=== PATIENT | male | born 1955 | race Caucasian/White ===

== ENCOUNTER 2020-11-07 04:51 | Emergency (ER) | payer BC, SELFPAY ==
--- NOTE | ~2020-11-07 | CT_ITS ---
EXAMINATION: CT abdomen pelvis wo con DATE: 11/07/2020 05:56 INDICATION: Right flank pain TECHNIQUE: Computed tomography (CT) of the abdomen and pelvis was performed without intravenous contr ast. The dose-length product was 1582.95 mGy-cm. Automated exposure control and iterative reconstruct ion technique were employed. COMPARISON: None. FINDINGS: Lung bases are unremarkable. Heart size normal. No significant pleural or pericardial effus ion. There is a punctate 1 mm right UVJ stone with mild right hydroureteronephrosis. Gallstones. Small low-density lesion right hepatic lobe measuring less than 1 cm, likely a cyst. The spleen, pancreas, adrenal glands and kidneys are unremarkable. Bowel gas pattern is nonobstructive. S mall fat-containing umbilical hernia. No free air or free fluid. No abnormal pelvic masses or fluid c ollections. Mild lumbar spondylosis. IMPRESSION: 1. Punctate 1 mm right UVJ stone with mild hydronephrosis. 2: Cholelithiasis. Reviewed, dictated and finalized at location A.
[2020-11-07 04:54] VITALS: BP 164/68; PULSE 67; RESP 16; TEMP 36.6; O2SAT 98
[2020-11-07 05:30] LABS: Basophils Percent Auto 0.4 % (0.2-1.2); Eosinophils Absolute Auto 0.3 K/mm3 (0-0.3); Eosinophils Percent Auto 3.6 % (0-4.4); Hematocrit 41.9 % (42.0-52.0); Hemoglobin 13.9 g/dL (14.0-18.0); Immature Granulocyte Absolute 0.05 K/mm3 (0.00-0.031); Immature Granulocyte Percent A 0.6 % (0-0.5); Lymphocytes Absolute Auto 2.65 K/mm3 (0.9-3.2); Lymphocytes Percent Auto 29.6 % (18.3-44.2); Mean Corpuscular HGB Conc 33.2 g/dl (32-36); Mean Corpuscular Hemoglobin 29.7 pg (26-34); Mean Corpuscular Volume 89.5 fl (80-100); Mean Platelet Volume 9.6 fl (7.4-10.4); Monocytes Percent Auto 11.4 % (2.6-8.5); Neutrophils Absolute Auto 4.9 K/mm3 (1.3-6.7); Neutrophils Percent Auto 54.4 % (45.5-73.1); Platelet Count Result 295 k/mm3 (150-375); Red Blood Count 4.68 M/mm3 (4.6-6.20); Red Cell Distribution Width 13.4 % (11.5-14.5)
--- NOTE | 2020-11-07 05:32 | ED.ABDPAIN ---
HPI - Abdominal Pain General Chief Complaint: Abdominal Pain Stated Complaint: kidney stones Time Seen by Provider: 11/07/20 05:08 History of Present Illness HPI narrative: Awoken from sleep early this morning by severe right flank pain. No radiation. Associated with nausea. Slightly improved with standing and walking. He has never had this pain before. Related Data Home Medications Medication Instructions Recorded Confirmed metoprolol succinate 50 mg 50 mg PO DAILY 03/07/19 tablet,extended release 24 hr lorazepam 11/07/20 Allergies Allergy/AdvReac Type Severity Reaction Status Date / Time No Known Allergies Allergy Unverified 11/07/20 04:56 Review of Systems Review of Systems: All systems reviewed & are unremarkable except as noted in HPI and below Constitutional: Constitutional: Denies chills and Denies fever(s) Cardiovascular: Cardiovascular: Denies chest pain Respiratory: Respiratory: Denies dyspnea Gastrointestinal: Gastrointestinal: Denies diarrhea, Reports nausea and Denies vomiting Genitourinary: Genitourinary: Denies hematuria and Denies dysuria Neurologic: Denies dizziness, Denies numbness and Denies weakness [facility] Past Medical History Medical History (Updated 11/07/20 @ 06:48 by Curt Yeager MD) HLD (hyperlipidemia) Hypertension Family History Family History Other Hypertension Social History Social History Smoking status: Never smoker Alcohol intake: never Gender identity (if verbalized by the patient): Male Sexual Orientation (if Verbalized by the Patient): Straight or Heterosexual Exam Const: General: healthy appearing and alert Orientation/consciousness: patient oriented x3 Other: mild distress, restless HENMT: Head: normal to inspection Neck: Neck: normal visual inspection Resp: Effort & Inspection: normal respiratory effort Auscultation: clear to auscultation bilaterally Cardio: Rate: regular rate Rhythm: regular rhythm GI: GI Palp: Yes Soft to palpation and No Tenderness to palpation present (GI) : General: Yes no CVA tenderness Skin: General skin exam: normal color Neuro: General: patient oriented x3, moves all extremities and CN's II-XI intact bilaterally Extrem: General: normal to inspection Psych: Affect: Anxious affect present Course Vital Signs Vital signs: Vital Signs Temperature 36.6 C 11/07/20 04:54 Pulse Rate 67 11/07/20 04:54 Respiratory Rate 16 11/07/20 04:54 Blood Pressure 164/68 H 11/07/20 04:54 Pulse Oximetry 98 11/07/20 04:54 Temperature 36.6 C 11/07/20 04:54 Pulse Rate 67 11/07/20 04:54 Respiratory Rate 16 11/07/20 04:54 Blood Pressure 164/68 H 11/07/20 04:54 Pulse Oximetry 98 11/07/20 04:54 MDM - Abdominal Pain MDM Narrative Medical decision making narrative: 1 mm right ureteral stone. Differential Diagnosis Differential diagnosis: Likely calculus of kidney and diverticulitis Medical Records Attestation: I reviewed the patient's medical records. Lab Data Attestation: I reviewed the patient's lab results. Result diagrams: 11/07/20 05:13 11/07/20 05:13 Labs: Lab Results 11/07/20 11/07/20 11/07/20 Range/Units 05:13 05:13 05:13 WBC 9.0 (4.5-10.0) K/mm3 RBC 4.68 (4.6-6.20) M/mm3 Hgb 13.9 L (14.0-18.0) g/dL Hct 41.9 L (42.0-52.0) % MCV 89.5 (80-100) fl MCH 29.7 (26-34) pg MCHC 33.2 (32-36) g/dl RDW 13.4 (11.5-14.5) % Plt Count 295 (150-375) k/mm3 MPV 9.6 (7.4-10.4) fl Immature Gran % (Auto) 0.6 H (0-0.5) % Neut % (Auto) 54.4 (45.5-73.1) % Lymph % (Auto) 29.6 (18.3-44.2) % [place] % (Auto) 11.4 H (2.6-8.5) % Eos % (Auto) 3.6 (0-4.4) % Baso % (Auto) 0.4 (0.2-1.2) % Lymph # (Auto) 2.65 (0.9-3.2) K/mm3 [place] # (Auto) 1.0 H (0.1-0.6) K
[2020-11-07 05:35] LABS: Add Urine Microscopic? YES; Appearance Urine Cloudy (Clear); Bilirubin Urine Negative (Negative); Blood Urine 3+ (Negative); Color Urine Yellow (Yellow); Glucose Urine UA Negative (Negative); Ketones Urine Negative (Negative); Leukocyte Esterase Ur Negative LEU/UL (Negative); Mucus Urine Rare /lpf; Nitrate Urine Negative (Negative); Protein Urine 1+ mg/dL (Negative); RBC Urine >75 /hpf (0-2); Specific Grav Ur 1.018 (1.001-1.035); Squamous Epithelial Cell Urine Rare /hpf (Few); Urobilinogen Urine Negative mg/dL (<2.0)
[2020-11-07] MEDS: fentaNYL CITRATE INJ (*CRX) 100 MCG/2 ML VIAL 50 MCG IV PUSH (05:36)
[2020-11-07] MEDS: SODIUM CHLORIDE 0.9% IV 1,000 ML 999 ML IV CONT (05:39)
[2020-11-07] MEDS: ONDANSETRON INJ 4 MG/2 ML VIAL IV PUSH (05:39)
[2020-11-07 05:41] LABS: Anion Gap 10 mmol/L (8-16); Blood Urea Nitrogen 21 mg/dL (9-20); Calcium 9.3 mg/dL (8.4-10.2); Carbon Dioxide 24 mmol/L (22-30); Chloride 104 mmol/L (98-107); Estimated CRCL calculation 80 ml/min; Estimated Glomerular Filt Rate > 60; Glucose 167 mg/dL (65-110); Sodium 138 mmol/L (137-145)
[2020-11-07] MEDS: KETOROLAC 30 MG/ML VIAL (*BKC) IV PUSH (06:58)
[2020-11-07] MEDS: HYDROcodone/acetaminophen (*CRX) 5-325 MG TABLET 1 TAB PO (06:59)
[2020-11-07] MEDS: TAMSULOSIN HCL 0.4 MG CAPSULE PO (07:01)
== END 2020-11-07 07:13 | disposition home or self-care (01) ==
PROVIDERS: Emergency Provider Emergency Medicine; PCP Emergency Medicine
DX: N13.2 Hydronephrosis with renal and ureteral calculous obstruction (principal); E78.5 Hyperlipidemia, unspecified; I10 Essential (primary) hypertension; K80.20 Calculus of gallbladder without cholecystitis without obstruction
CPT/HCPCS: 36415; 74176; 80048; 81001; 85025; 96361; 96374; 96375; 99284; A9270; J1885; J2405; J3010; J7030

== ENCOUNTER 2022-09-18 01:49 | Day surgery (SDC) | payer MEDICARE, OTHER, SELFPAY ==
[2022-09-14 08:44] VITALS: BMI 34.3
[2022-09-18 06:55] VITALS: BP 134/79; PULSE 67; RESP 20; TEMP 36.6; O2SAT 100; BMI 35.2
[2022-09-18] MEDS: LACTATED RINGERS 1,000 ML 150 ML IV CONT (06:57)
--- NOTE | 2022-09-18 07:43 | WPDANESEPPF ---
Anes - Initial Pre Proc Eval Procedure: Operation Date: 09/18/22 08:00 Proposed Procedures p Colonoscopy - Alex Montero MD Date/Time: 09/18/22 07:43 Surgeon: Alex Montero MD Pre Op Diagnosis: other fecal abnormalities Patient Data Age: 67 Gender: M Height: 1.85 m Weight: 121.3 kg Last Vital Signs Temp 36.6 C 09/18/22 06:55 Pulse 67 09/18/22 06:55 Resp 20 09/18/22 06:55 BP 134/79 09/18/22 06:55 Pulse Ox 100 09/18/22 06:55 O2 Del Method Room Air 09/18/22 06:55 Allergies Allergy/AdvReac Type Severity Reaction Status Date / Time No Known Allergies Allergy Verified 09/18/22 06:53 Home Medications Medication Instructions Recorded Confirmed Type amlodipine 10 mg tablet (Norvasc) 10 mg PO DAILY #90 tabs 02/16/22 09/14/22 Rx simvastatin 20 mg tablet See Rx Instructions .Route 02/16/22 09/14/22 Rx .COMPLEX #90 tabs lisinopril 20 See Rx Instructions .Route 04/28/22 09/14/22 Rx mg-hydrochlorothiazide 25 mg tablet .COMPLEX #90 tabs Patient hx anesthesia problems: none Family hx anesthesia problems: none Results Review: All pre-operative results and documents have been reviewed as part of the pre-operative evaluation. [facility] Past Medical History Medical History HLD (hyperlipidemia) Hypertension Family History Family History Other Hypertension Social History Social History Smoking status: Never smoker Alcohol intake: current Alcohol use details: rarely Substance use: never Substance use type: does not use Living arrangements: alone Gender identity (if verbalized by the patient): Male Sexual Orientation (if Verbalized by the Patient): Straight or Heterosexual Spiritual care concerns: No Anes - Eval Final PreProcedure Day of Procedure 09/18/22 07:43 Patient weight: obese Heart: regular rate and rhythm Lungs: clear to auscultation and normal air movement Airway: Mallampati scale class II Neurological: alert and oriented Last oral intake: >/= 8 hours ASA classification: III Emergent: no Anesthetic plan: proceed Anesthesia type and monitoring: general GIVS Results Review: All pre-operative results and documents have been reviewed as part of the pre-operative evaluation. Informed Consent: The patient's anesthetic plan and its attendant risks and benefits were discussed with the patient/family/POA. Questions were solicited and answers provided to the satisfaction of the patient/family/POA.
--- NOTE | 2022-09-18 07:57 | PM.HPGS ---
History of Present Illness History of Present Illness Consent: Risks, benefits, and alternatives have been discussed and questions answered. Patient agrees to proceed with procedure. Chief complaint: other fecal abnormalities Narrative: Heladio Hung is a 67 year old male here for first colonoscopy, had + cologuard Review of Systems Constitutional: Constitutional: Denies headache(s) and Denies weakness Eyes: Eyes: Denies blurry vision ENT: Reports Normal hearing present, Denies headache(s) and Denies neck pain Cardiovascular: Cardiovascular: Denies chest pain and Denies dyspnea Respiratory: Respiratory: Denies dyspnea Gastrointestinal: Gastrointestinal: Reports no additional gastrointestinal complaints Genitourinary: Genitourinary: Denies dysuria Musculoskeletal: Musculoskeletal: Denies neck pain Integumentary/Breasts: Skin/Breast: Denies dry skin Neurologic: Reports Normal hearing present, Denies headache(s) and Denies weakness Psychiatric: Psychiatric: Denies anxiety Endocrine: Endocrine: Denies change in body appearance Hematologic/Lymphatic: Hematologic/Lymphatic: Denies easy bleeding Allergic/Immunologic: Allergic/Immunologic: Denies urticaria PMFSH Past Medical History Medical History (Updated 09/18/22 @ 07:57 by Alex Montero MD) HLD (hyperlipidemia) Hypertension Positive colorectal cancer screening using Cologuard test Family History Family History Other Hypertension Social History Social History Smoking status: Never smoker Alcohol intake: current Alcohol use details: rarely Substance use: never Substance use type: does not use Living arrangements: alone Gender identity (if verbalized by the patient): Male Sexual Orientation (if Verbalized by the Patient): Straight or Heterosexual Spiritual care concerns: No Meds Home Medications and Allergies Home Medications Medication Instructions Recorded Confirmed Type amlodipine 10 mg tablet (Norvasc) 10 mg PO DAILY #90 tabs 02/16/22 09/14/22 Rx simvastatin 20 mg tablet See Rx Instructions .Route 02/16/22 09/14/22 Rx .COMPLEX #90 tabs lisinopril 20 See Rx Instructions .Route 04/28/22 09/14/22 Rx mg-hydrochlorothiazide 25 mg tablet .COMPLEX #90 tabs Allergies Allergy/AdvReac Type Severity Reaction Status Date / Time No Known Allergies Allergy Verified 09/18/22 06:53 Vital Signs Vital Signs - 24 hr 09/18/22 06:55 Temperature 97.9 F Pulse Rate 67 Respiratory Rate 20 Blood Pressure 134/79 Pulse Oximetry 100 Oxygen Delivery Room Air Exam Const: General: comfortable and no acute distress HENMT: Face/Nose/Sinus: Normal nares present Eyes: General: appearance normal, both eyes and all related structures Neck: Neck: no JVD Resp: Auscultation: clear to auscultation bilaterally Cardio: Rate: regular rate Rhythm: regular rhythm GI: Inspection: non-distended GI Palp: Yes Soft to palpation Skin: General skin exam: normal color Neuro: General: gait normal Speech: normal speech Extrem: General: normal to inspection Psych: Mental Status: mental status grossly normal Assessment and Plan Assessment and plan (1) Positive colorectal cancer screening using Cologuard test: Code(s): R19.5 - Other fecal abnormalities Status: Acute Assessment and Plan: colonoscopy
[2022-09-18 08:15] VITALS: BP 109/71; PULSE 70; RESP 16; O2SAT 97
[2022-09-18 08:25] VITALS: BP 129/76; PULSE 62; RESP 18; O2SAT 100
[2022-09-18 08:35] VITALS: BP 133/75; PULSE 58; RESP 18; O2SAT 100
== END 2022-09-18 08:41 | disposition home or self-care (01) ==
PROVIDERS: PCP Emergency Medicine; Visit Provider Internal Medicine Gastroenterology
PROC: 0DJD8ZZ Inspection of Lower Intestinal Tract, Via Natural or Artificial Opening Endoscopic (ICD-10-PCS; CPT 45378; principal; 2022-09-18 08:00)
DX: R19.5 Other fecal abnormalities (principal); D12.5 Benign neoplasm of sigmoid colon; D12.3 Benign neoplasm of transverse colon; K64.8 Other hemorrhoids; I10 Essential (primary) hypertension; E78.5 Hyperlipidemia, unspecified; E66.9 Obesity, unspecified; Z68.35 Body mass index [BMI] 35.0-35.9, adult
CPT/HCPCS: 45385; 88305; J2704; J7120

== ENCOUNTER 2023-09-23 11:21 | Emergency (ER) | payer MEDICARE, OTHER, SELFPAY ==
--- NOTE | ~2023-09-23 | CT_ITS ---
Non-contrast CT scan of the Abdomen and Pelvis Clinical indication: Flank pain Technique: 2.5 mm axial scans were obtained through the abdomen and pelvis without intravenous or or al contrast. Dose reduction technique was used on this scan by utilizing automated exposure control a nd iterative reconstruction technique. The dose-length product (DLP) was 1023.78 mGy-cm. COMPARISON: 11/07/2020 Findings: Images through the lung bases reveal no abnormalities. There is a 4 mm stone in the proximal right ureter (axial image 113). Possible minimal right hydronep hrosis. Additional larger nonobstructing right renal stones are present, measuring up to 9 mm. No lef t renal or left ureteral stone. No left hydronephrosis. The liver, spleen, pancreas, and adrenals appear normal. Small calcified gallstones are present. Ther e is no aortic aneurysm. There is no evidence of bowel obstruction. Images through the pelvis were performed. There is no evidence of ascites or lymphadenopathy. Urinary bladder unremarkable. No pelvic mass seen. Impression: 4 mm proximal right ureteral stone with probable minimal right hydronephrosis. Additional larger nonobstructing right renal stones, as detailed above. Cholelithiasis. Reviewed, dictated and finalized at location . Impression: 4 mm proximal right ureteral stone with probable minimal right hydronephrosis. Additional larger nonobstructing right renal stones, as detailed above. Cholelithiasis.
[2023-09-23 11:21] VITALS: BP 132/86; PULSE 66; RESP 18; TEMP 36.6; O2SAT 100
[2023-09-23] MEDS: ONDANSETRON INJ 4 MG/2 ML VIAL (11:48)
[2023-09-23] MEDS: MORPHINE SULFATE (*CRX) 4 MG/ML INJ (11:49)
[2023-09-23 12:08] LABS: Basophils Percent Auto 0.3 % (0.2-1.2); Eosinophils Percent Auto 0.1 % (0-4.4); Hematocrit 40.6 % (42.0-52.0); Hemoglobin 13.9 g/dL (14.0-18.0); Immature Granulocyte Absolute 0.05 K/mm3 (0.00-0.031); Immature Granulocyte Percent A 0.4 % (0-0.5); Lymphocytes Absolute Auto 0.95 K/mm3 (0.9-3.2); Lymphocytes Percent Auto 7.4 % (18.3-44.2); Mean Corpuscular HGB Conc 34.2 g/dl (32-36); Mean Corpuscular Hemoglobin 30.6 pg (26-34); Mean Corpuscular Volume 89.4 fl (80-100); Mean Platelet Volume 9.3 fl (7.4-10.4); Monocytes Absolute Auto 0.7 K/mm3 (0.1-0.6); Monocytes Percent Auto 5.1 % (2.6-8.5); Neutrophils Absolute Auto 11.2 K/mm3 (1.3-6.7); Neutrophils Percent Auto 86.7 % (45.5-73.1); Platelet Count Result 282 k/mm3 (150-375); Red Blood Count 4.54 M/mm3 (4.6-6.20); Red Cell Distribution Width 12.7 % (11.5-14.5); White Blood Count 12.9 K/mm3 (4.5-10.0)
[2023-09-23 12:12] LABS: Appearance Urine Cloudy (Clear); Bacteria Urine None Seen /hpf; Bilirubin Urine Negative (Negative); Blood Urine 3+ (Negative); Color Urine Yellow (Yellow); Glucose Urine UA Negative (Negative); Ketones Urine Negative (Negative); Leukocyte Esterase Ur Trace LEU/UL (Negative); Nitrate Urine Negative (Negative); Non Pathogenic Casts 0-2; Protein Urine Trace mg/dL (Negative); RBC Urine 21-50 /hpf (0-2); Specific Grav Ur 1.017 (1.001-1.035); Squamous Epithelial Cell Urine None Seen /hpf (Few); Urobilinogen Urine 0.2 mg/dL (<2.0); WBC Urine 0-5 /hpf (0-3)
[2023-09-23 12:13] LABS: Add Urine Microscopic? YES
[2023-09-23 12:19] LABS: Alanine Aminotransferase 25 U/L (6-50); Albumin Level 4.5 g/dL (3.5-5.1); Alkaline Phosphatase 64 U/L (38-126); Anion Gap 10 mmol/L (4-12); Aspartate Amino Transferase 30 U/L (17-59); Bilirubin,Total 0.7 mg/dL (0.2-1.3); Blood Urea Nitrogen 20 mg/dL (9-20); Calcium 9.3 mg/dL (8.4-10.2); Carbon Dioxide 24 mmol/L (22-30); Chloride 105 mmol/L (98-107); Estimated CRCL calculation 76 ml/min; Estimated Glomerular Filt Rate > 60; Glucose 180 mg/dL (65-110); Potassium 3.7 mmol/L (3.4-5.0); Sodium 139 mmol/L (137-145)
[2023-09-23] MEDS: KETOROLAC 15 MG/ML VIAL (*BKC) IV PUSH (12:30)
--- NOTE | 2023-09-23 13:25 | ED.GENADULT ---
HPI - General Adult General Chief complaint: Urogenital-Male Stated complaint: kidney stone Time Seen by Provider: 09/23/23 11:40 Source: patient Mode of arrival: ambulatory Limitations: no limitations History of Present Illness HPI narrative: 68-year-old with a history of hypertension, hypercholesteremia, kidney stones here with a complaint of sudden onset of right-sided flank pain radiating into right lower abdomen which started few hours ago. Complains of mild nausea but no significant vomiting. He denies any fever or chills. Patient states that he had a similar pain few years ago and was diagnosed with kidney stones at bedtime and his pain resembles . Onset (ago): hour(s) (2) Location: back and abdomen Radiation: abdomen Severity: severe Quality: sharp Pain Consistency: constant Relieving factors: none Exacerbating factors: none Associated symptoms: nausea/vomiting Treatments prior to arrival: none Related Data Allergies Allergy/AdvReac Type Severity Reaction Status Date / Time No Known Allergies Allergy Verified 03/15/23 09:29 [facility] Past Medical History Medical History HLD (hyperlipidemia) Hypertension Positive colorectal cancer screening using Cologuard test Family History Family History Other Hypertension Social History Social History Smoking status: Never smoker Alcohol intake: current Alcohol use details: rarely Substance use: never Substance use type: does not use Current Housing: Decline to Answer Concerned About Future Housing: Decline to Answer Difficulty Paying Gas/Electric Bills: Decline to Answer Difficulty Paying for Meds: Decline to Answer Currently Unemployed: Decline to Answer Education: Decline to Answer Difficulty w/ Childcare or Family Care: Decline to Answer Living arrangements: alone Gender identity (if verbalized by the patient): Male Sexual Orientation (if Verbalized by the Patient): Straight or Heterosexual Spiritual care concerns: No Exam Narrative: GENERAL: Well-appearing, well-nourished, and in no acute distress. HEAD: Normocephalic, atraumatic. EYES: PERRLA and EOMI. ENT: Nares clear, no rhinorrhea or epistaxis. Mucous membranes moist. NECK: Supple. CHEST: Clear to auscultation. No respiratory distress. HEART: Regular rate and rhythm. No murmur heard. Normal peripheral pulses. ABDOMEN: Soft, nontender, nondistended, normal active bowel sounds. EXTREMITIES: Normal range of motion. No edema. SKIN: Warm, dry, no rash. NEURO: No focal deficits. Alert and oriented x3. PSYCH: Normal mood and affect. Course Course Emergency Course: Patient still continues to be pain after morphine I did inform him about his lab work, CT scan. Will give him a Toradol for pain control Patient feeling much better. He feels comfortable going home advised him to drink more fluids take pain medication as prescribed, follow-up with the urologist Vital Signs Vital signs: Vital Signs Temperature 36.6 C 09/23/23 11:21 Pulse Rate 66 09/23/23 11:21 Respiratory Rate 18 09/23/23 11:21 Blood Pressure 132/86 09/23/23 11:21 Pulse Oximetry 100 09/23/23 11:21 Oxygen Delivery Room Air 09/23/23 11:21 Temperature 36.6 C 09/23/23 11:21 Pulse Rate 66 09/23/23 11:21 Respiratory Rate 18 09/23/23 11:21 Blood Pressure 132/86 09/23/23 11:21 Pulse Oximetry 100 09/23/23 11:21 Oxygen Delivery Room Air 09/23/23 11:21 Medical Decision Making Differential Diagnosis Differential Diagnosis: UTI, pyelonephritis, kidney stone, appendicitis, radicular pain Vital Signs Vital Signs: Vital Signs Temperature 36.6 C 09/23/23 11:21 Pulse Rate 66 09/23/23 11:21 Respiratory Rate 18 09/23/23 11:21 Blood Pressure 132/86 09/23/23 11:21 Pulse Oximetry 100 09/23/23 1
[2023-09-23 13:37] VITALS: BP 132/80; PULSE 68; RESP 16; TEMP 36.6; O2SAT 100
== END 2023-09-23 13:39 | disposition home or self-care (01) ==
PROVIDERS: Emergency Provider Family Medicine; PCP Emergency Medicine
DX: N20.2 Calculus of kidney with calculus of ureter (principal); I10 Essential (primary) hypertension; E78.00 Pure hypercholesterolemia, unspecified; Z87.442 Personal history of urinary calculi; K80.20 Calculus of gallbladder without cholecystitis without obstruction; Z79.899 Other long term (current) drug therapy
CPT/HCPCS: 36415; 74176; 80053; 81001; 85025; 96361; 96374; 96375; 99284; J1885; J2270; J2405

== ENCOUNTER 2025-01-08 15:05 | Outpatient (CLI) | payer MEDICARE, OTHER, SELFPAY ==
--- NOTE | ~2025-01-08 | XR_ITS ---
XR abdomen/kub 1V 01/08/2025 15:26 INDICATION: Flank pain TECHNIQUE: KUB COMPARISON: None FINDINGS: Bowel gas pattern is normal. There is no evidence of free air, mass, organomegaly, ascites or obstruction. No abnormal calculi are seen. The bones appear intact. Calcifications in the pelvis are believed to be phleboliths. IMPRESSION: 1: No acute abdominal abnormality identified. Reviewed, dictated and finalized at location B.
--- OUTSIDE RECORDS SUMMARY | 2025-01-08 16:00 | XMS_ITS | Clinical Summary ---
Author Organization [facility] Virtual Care Address [facility] [place] [address] Phone Care Team Providers Care Tape Deck Installer Name Role Phone Chong King MD Primary Care Provide r Allergies No known active allergies Medications amLODIPine (NORVASC) 10 mg tabletIndicatio ns:hypertension Take 1 tablet (10 mg total) by mouth every morning 3 Active lisinopril-hydr oCHLOROthiazide (ZESTORETIC) 20-25 mg per tablet Take 1 tablet by mouth every morning 4 Active LORazepam (ATIVAN) 0.5 mg tablet Take 1 tablet (0.5 mg total) by mouth 3 (three) times a day as needed for anxiety 3 Active simvastatin (ZOCOR) 20 mg tabletIndicatio ns:hyperlipidem ia Take 1 tablet (20 mg total) by mouth every morning 3 Active ergocalciferol (VITAMIN D) 50,000 unit capsuleIndicati ons:Vitamin D deficiency Take 1 capsule (50,000 Units total) by mouth once a week TAKE 1 CAPSULE ONCE A WEEK FOR 12 WEEKS, THEN FOLLOW UP WITH YOUR PCP. 12 capsule 4 Active acetaminophen (TYLENOL) 500 mg tablet Take 2 tablets (1,000 mg total) by mouth every 8 (eight) hours 90 tablet 5 Active aspirin 81 mg enteric coated tablet Take 1 tablet (81 mg total) by mouth 2 (two) times a day 60 tablet 5 Active senna-docusate (PERICOLACE) 8.6-50 mg Take 2 tablets by mouth 2 (two) times a day May increase to 4 tablets twice daily if needed. HOLD medication for diarrhea. 80 tablet [address] (PROTONIX) 20 mg EC tablet Take 1 tablet (20 mg total) by mouth daily 30 tablet 5 Active meloxicam (MOBIC) 7.5 mg tablet Take 1 tablet (7.5 mg total) by mouth daily 30 tablet 5 Active oxyCODONE (ROXICODONE) 5 mg immediate release tabletIndicatio ns:Pain Take 1 tablet (5 mg total) by mouth every 4 (four) hours as needed for pain (breakthrough) 30 tablet 5 Active traMADoL (ULTRAM) 50 mg tablet Take 1 tablet (50 mg total) by mouth every 8 (eight) hours as needed for pain 42 tablet 5 Active Active Problems Problem Noted Date Diagnosed Date Primary osteoarthritis of right knee 03/01/2024 Immunizations Immunization Administration Dates Next Due Influenza, Quadrivalent, [place] l Culture-based MDCK, Preservative Free, Antibiotic Free, Intramuscular 01/09/2020 Tdap 01/19/2020 Surgical History Surgery Date Site/Laterality Comments CYSTOSCOPY 04/12/2023 - 04/11/2024 KIDNEY STONE SURGERY 04/12/2023 - 04/11/2024 Medical History Medical History Date Comments Kidney stones Hypertension Family History Medical History Relation Name Comments Anesthesia problems Neg Hx Malig Hyperthermia Neg Hx Pseudochol deficiency Neg Hx Social History Tobacco Use Types Packs/Day Years Used Date Smoking Tobacco: Former Cigarettes 0.5 5 1 989 - 1993 Passive Smoke Exposure: Past Tobacco Cessation:Counseling Given: Not Answered AUDIT-C Answer Date Recorded Q1: How often do you have a drink containing alc ohol? 2-3 times a week 03/23/2024 Q2: How many drinks containi ng alcohol do you have on a typical day when you are drinking? 3 or 4 03/23/2024 Q3: How often do you have si x or more drinks on one occasion? Monthly 03/23/2024 Personal Safety Answer Date Recorded Have you ever been in or are you currently in a harmful physical or emotional relationship or is someone making you feel afraid or unsafe? Denies 04/13/2024 Sex and Gender Information Value Date Recorded Sex Assigned at Not on file Legal Sex Male 8:30 AM CENA Gender Identity Not on file Sexual Orientation Not on file Obstetrics History Last Filed Vital Signs Vital Sign Reading Time Taken Comments Blood Pressure 161/76 06/26/2024 6:51 PM CDT Pulse 90 06/26/2024 6:51 PM CDT Temperature 38.5 C (101.3 F) 06/26/2024 6:58 PM CDT Respiratory Rate 20 06/26/2024 6:51 PM CDT Oxygen Saturation 96% 06/26/2024 6:51 PM CDT Inhaled Oxygen Concentration - - Weight 126.1 kg (278 lb) 06/26/2024 6:51 PM CDT Height 185.4 cm (6' 1) 06/26/2024 6:51 PM CDT Body Mass Index 36.68 06/26/2024 6:51 PM CDT Plan of Treatment Health Maintenance Due Date Last Done Comments Colon Cancer Screening-Colonoscopy 1955 Depression Screening 1955 Hepatitis C Screening 1955 Prostate Cancer Screening-PSA 1955 Hepatitis B Screening 02/09/1974 Pneumococcal vaccine 65+ (1 of 1 - PCV) 02/09/2006 Zoster Vaccine (1 of 2) 02/09/2006 Well Visit 65+ 02/09/2021 Covid-19 Vaccine (4 - season) 2024 01/14/2021, 07/05/2020, 06/14/2020 Influenza Vaccine (#1) 2024 01/09/2020 Fall Risk Assessment 04/14/2025 04/14/2024 DTaP/Tdap/Td Vaccine (2 - Td or Tdap) 01/18/203012/2019 Abdominal Aortic Aneurysm (A AA) Screen Completed 09/25/2023 Medical Devices Implanted Type Area Operational Assistant Device Identifier Shelf Expiration Date Model / Serial / Lot [employer] Insert Tibial Triathlon 6 H10mm Knee Bearing Condylar Stabilize Sterile 1320-S-652-E - [id number] Implanted:Qty: 1 on 04/13/2024 at [facility] Right: Knee [employer] 01/01/2029 [id number] -[id number] / / [id number] [employer] Triathlon Cruciate Retain Bead Knee Right 6 Component Femoral Pa [id number]-F-[id number] - [id number] Implanted:Qty: 1 on 04/13/2024 at [facility] Right: Knee [employer] 01/06/2029 [id number] / / [id number] [employer] Triathlon Knee 6 Baseplate Tibial Tritanium 5536-B-600 - [id number] Implanted:Qty: 1 on 04/13/2024 at [facility] Right: Knee [employer] 01/16/2029 [id number] / / [id number] Insurance MEDICARE [facility] [place] [address] PHYSICIANS [facility] [place] [employer] [place] Advance Directives For more information, please contact: [phone] * Full Code (Latest Code Status on File) Date Activated Date Inactivated Comments 04/13/2024 10:47 AM 04/14/2024 3:20 PM Care Teams Tape Deck Installer Relationship Specialty Start Date End Date Chong King MD [address] [place] [address] PCP - General Emergency Medicine 03/22/23
--- OUTSIDE RECORDS SUMMARY | 2025-01-08 16:00 | XMS_ITS | Clinical Summary ---
Author Organization [facility] Address [address] [place] [address] Care Team Providers Care Route Vending Machine Servicer Name Role Phone Chong King MD Primary Care Provider + [phone] Allergies No known active allergies Medications lisinopril (PRINIVIL) 2.5 MG tablet Take 1 tablet (2.5 mg total) by mouth daily. Active simvastatin (ZOCOR) 20 MG tablet Take 1 tablet (20 mg total) by mouth daily. 03/12/2023 Active tamsulosin (FLOMAX) 0.4 MG Cap Take 1 capsule (0.4 mg total) by mouth nightly at bedtime. 30 capsule 1 10/01/2023 Active hyoscyamine (LEVSIN/SL) 0.[address] 1 tablet (0.125 mg total) under the tongue every 4 (four) hours as needed for Cramping (bladder spasms or ureteral stent discomfort). 30 tablet 1 10/01/2023 Active oxyCODONE immediate release (ROXICODONE) 5 MG immediate release tabletIndicatio ns:Acute Pain < 3 Day Supply Take 1 tablet (5 mg total) by mouth every 6 (six) hours as needed. Indications: Acute Pain < 3 Day Supply 12 tablet 10/15/2023 Active Family History Medical History Relation Comments No Known Problems Father Cancer Mother breast ca Relation Status Comments Father Alive Mother Social History Tobacco Use Types Packs/Day Years Used Date Smoking Tobacco: Never Smokeless Tobacco: Never Tobacco Cessation:Counseling Given: Not Answered Alcohol Use Standard Drinks/Week Comments Yes 0 (1 standard drink = 0.6 oz pur e alcohol) social Sex and Gender Information Value Date Recorded Sex Assigned at Not on file Legal Sex Male 7:39 AM CDT Gender Identity Not on file Sexual Orientation Not on file Last Filed Vital Signs Vital Sign Reading Time Taken Comments Blood Pressure 154/74 10/15/2023 9:45 AM CDT Pulse 68 10/15/2023 9:45 AM CDT Temperature 36.4 C (97.5 F) 10/15/2023 9:45 AM CDT Respiratory Rate 18 10/15/2023 9:45 AM CDT Oxygen Saturation 98% 10/15/2023 9:45 AM CDT Inhaled Oxygen Concentration - - Weight 117.6 kg (259 lb 4.2 oz) 10/15/2023 5:52 AM CDT Height 182.9 cm (6') 10/15/2023 5:52 AM CDT Body Mass Index 35.16 10/15/2023 5:52 AM CDT Plan of Treatment Health Maintenance Due Date Last Done Comments Colorectal Cancer Screening Colonoscopy (10 Years) 1955 Hepatitis C 02/09/1974 Pneumococcal Vaccine: 50+ Years (1 of 1 - PCV) 02/09/2006 Zoster Vaccines (1 of 2) 02/09/2006 Annual Medicare Wellness Visit 02/09/2021 COVID-19 Vaccine (4 - 2024-2 6 season) 2024 01/14/2021, 07/05/2020, 06/14/2020 DTaP, Tdap and Td Vaccines ( 2 - Td or Tdap) 01/18/2030 01/19/2020 RSV Immunization or 60+ Years (1 - 1-dose 75+ series) 02/09/2031 Meningococcal B Vaccine Aged Out No l onger eligible based on patient's age to complete this topic Meningococcal Vaccine Aged Out No osmel syed eligible based on patient's age to complete this topic RSV Immunizations Under 20 Months Aged Out No longer eligible b ased on patient's age to complete this topic Medical Devices Implanted Type Area Trimmer Sawyer Device Identifier Shelf Expiration Date Model / Serial / Lot Stent Ureteral 6fr 26cm Pigtl Crv Taper Tip Bldr Mrk - [id number] Implanted:Qty : 1 on 10/15/2023 by Tam Phelps MD at [facility] Stent Right: Ureter [employer] [id number] 05/26/2026 [id number] / / [id number] Explanted Type Area Trimmer Sawyer Device Identifier Shelf Expiration Date Model / Serial / Lot Stent Ureteral 6fr 26cm Pigtl Crv Taper Tip Bldr Mrk - [id number] Implanted:Qty : 1 on 10/01/2023 by Tam Phelps MD at [facility] Explanted:Qty : 1 on 10/15/2023 by Tam Phelps MD at [facility] Stent Right: Ureter [employer] [id number] 04/21/2026 [id number] / / [id number] Insurance MEDICARE [employer] Care Teams Route Vending Machine Servicer Relationship Specialty Start Date End Date Chong King MD [address] [place] [address] PCP - General INTERNAL MEDICINE 09/30/23
--- OUTSIDE RECORDS SUMMARY | 2025-01-08 16:00 | XMS_ITS | Clinical Summary ---
Author Organization [facility] Address [address] [place] [address] Care Team Providers Care Checkout Supervisor Name Role Phone Chong King MD Primary Care Provider [phone] Source Comments [facility],non-owned Affiliates and Associated Physician Practices is amultiple site organization consisting of ambulatory clinics and hospital sitesin [place], [place], [place] and [place]. This disclosure is being madepursuant to the Care Everywhere program and may not contain all information available regarding this patient. Last updated 17.[employer] [facility] Allergies No known active allergies Medications * Be aware that medications may not be up to date on this document. Alwaysverify current medications with the patient. oxyCODONE, immediate release, (Roxicodone) 5 MG tabletIndication s:Kidney stone Take 1 (one) tablet by mouth every 6 hours as needed for Pain 15 tablet 09/25/2023 Active Social History Tobacco Use Types Packs/Day Years Used Date Smoking Tobacco: Never Assessed Sex and Gender Information Value Date Recorded Sex Assigned at Not on file Legal Sex Male 5:03 AM CDT Gender Identity Not on file Sexual Orientation Not on file Last Filed Vital Signs Vital Sign Reading Time Taken Comments Blood Pressure 135/62 09/25/2023 2:30 PM CDT Pulse 65 09/25/2023 2:30 PM CDT Temperature 36.4 C (97.6 F) 09/25/2023 11:35 AM CDT Respiratory Rate 21 09/25/2023 2:30 PM CDT Oxygen Saturation 95% 09/25/2023 2:30 PM CDT Inhaled Oxygen Concentration - - Weight 113.4 kg (250 lb) 09/25/2023 1:39 PM CDT Height - - Body Mass Index - - Plan of Treatment Health Maintenance Due Date Last Done Comments COLNORMAN (AGES 45-75) - COL ON CA SCREENING 1955 COLON MONITORING 1956 COLONOSCOPY - COLON CA SCREENING 1956 CT COLONOGRAPHY - COLON CA SCREENING 1955 Colorectal Cancer Screening 1955 FIT - COLON CA SCREENING 1956 FLEX SIG - COLON CA SCREENING 1955 LIPID TESTING 1955 MEDICARE AWV 12 MONTHS 1955 HEPATITIS C SCREENING 02/05/1974 DTAP/TDAP/TD VACCINES (1 - Tdap) 02/09/1975 PNEUMOCOCCAL VACCINE 50+ (1 of 1 - PCV) 02/09/2006 ZOSTER VACCINE (1 of 2) 02/09/2006 DEPRESSION SCREENING 04/12/2024 COVID-19 VACCINE (4 - 2024-2 6 season) 2024 01/14/2021, 07/05/2020, 06/14/2020 INFLUENZA VACCINE (#1) 2024 01/09/2020 Respiratory Syncytial Virus (RSV) Vaccine Pt: or over 60 yrs (1 - 1-dose 75+ series) 02/09/2031 HEPATITIS B VACCINE Aged Out No longe r eligible based on patient's age to complete this topic HIB VACCINE Aged Out No longer eligi ble based on patient's age to complete this topic HPV VACCINE Aged Out No longer eligi ble based on patient's age to complete this topic MENINGOCOCCAL (Group B) VACCINE SHARED DECISION-MAKING Aged Out No longer eligible based on patient's age to complete this topic MENINGOCOCCAL GROUPS A/C/Y/W VACCINE Aged Out No longer eligible b ased on patient's age to complete this topic Insurance MEDICARE [employer] Care Teams Checkout Supervisor Relationship Specialty Start Date End Date Chong King MD [address] [address] PCP - General Internal Medicine 09/25/23
== END 2025-01-08 15:06 | disposition home or self-care (01) ==
PROVIDERS: PCP Emergency Medicine; Visit Provider Urology
DX: N20.0 Calculus of kidney (principal)
CPT/HCPCS: 74018

== ENCOUNTER 2025-01-24 08:19 | Outpatient (CLI) | payer MEDICARE, OTHER, SELFPAY ==
--- NOTE | 2025-01-24 08:30 | ECG_ITS ---
Test Date: 2025-01-24 08:46:11 Measurements Intervals [place] Rate: 67 P: 8 [place]: 156 QRS: 1 QRSD: 110 T: 12 QT: 374 QTc: 396 Interpretive Statements SINUS RHYTHM NONSPECIFIC T-WAVE ABNORMALITY- INFERIOR LEADS BASELINE ARTIFACT- I, II, III, AVR, AVL, AVF, V4-V6 BORDERLINE ECG No previous ECG available for comparison Electronically Signed On 01-24-2025 09:08:00 CDT by Stephan Ac D.O.
--- OUTSIDE RECORDS SUMMARY | 2025-01-24 08:43 | XMS_ITS | Clinical Summary ---
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 Gender Identity Not on file Sexual Orientation [...] Completed 09/25/2023 Medical Devices Implanted Type Area Car Construction Superintendent Device Identifier Shelf Expiration Date Model / Serial / Lot [employer] Insert Tibial Triathlon 6 H10mm Knee Bearing Condylar Stabilize Sterile 5114-T-479-E - [id number] Implanted:Qty: 1 on 04/13/2024 at [facility] Right: Knee [employer] 01/01/2029 5531-G-610 -E / / [id number] [employer] Triathlon Cruciate Retain Bead Knee Right 6 Component Femoral Pa 5517-F-602 - [id number] Implanted:Qty: 1 on 04/13/2024 at [facility] Right: Knee [employer] 01/06/2029 5517-F-602 / / [id number] [employer] Triathlon Knee 6 Baseplate Tibial Tritanium 5536-B-600 - [id number] Implanted:Qty: 1 on 04/13/2024 at [facility] Right: Knee [employer] 01/16/2029 5536-B-600 / / [id number] Insurance MEDICARE [facility] MEDICARE [facility] [place] Advance Directives For more information, please contact: [phone] * Full Code (Latest Code Status on File) Date Activated Date Inactivated Comments 04/13/2024 10:47 AM 04/14/2024 3:20 PM Care Teams Security Installation Technician Relationship Specialty Start Date End Date Chong King MD [address] [place] [address] PCP - General Emergency Medicine 03/22/23
--- OUTSIDE RECORDS SUMMARY | 2025-01-24 08:43 | XMS_ITS | Clinical Summary ---
Author Organization [facility] Address [address] [place] [address] Care Team Providers Care Food Vendor Name Role Phone Chong King MD Primary Care Provider [phone] Source Comments [facility],non-owned Affiliates and Associated Physician Practices is amultiple site organization consisting of ambulatory clinics and hospital sitesin [place], [place], [place] and [place]. This disclosure is being madepursuant to the Care Everywhere program and may not contain all information available regarding this patient. Last updated 17.[employer] [facility] Allergies No known active allergies Medications * [...] topic Insurance [employer] Care Teams Food Vendor Relationship Specialty Start Date End Date Chong King MD [address] [address] PCP - General Internal Medicine 09/25/23
--- OUTSIDE RECORDS SUMMARY | 2025-01-24 08:43 | XMS_ITS | Clinical Summary ---
Author Organization [facility] Address [address] [place] [address] Care Team Providers Care Assembler Handbags Name Role Phone Chong King MD Primary Care Provider + [phone] Allergies No known active allergies Medications lisinopril [...] 2024-2 6 season) 2024 01/14/2021, 07/05/2020, 06/14/2020 Influenza Adult (#1) 2025 01/09/2020 DTaP, Tdap and Td Vaccines ( 2 - Td or Tdap) 01/18/2030 01/19/2020 RSV Immunization or 60+ Years (1 - 1-dose 75+ series) 02/09/2031 Hepatitis A Vaccines Aged Out No long er eligible based on patient's age to complete this topic Meningococcal B Vaccine Aged Out No l onger eligible based on patient's age to complete this topic Meningococcal Vaccine Aged Out No osmel syed eligible based on patient's age to complete this topic RSV Immunizations Under 20 Months Aged Out No longer eligible b ased on patient's age to complete this topic Medical Devices Implanted Type Area Childcare Aide Device Identifier Shelf Expiration Date Model / Serial / Lot Stent Ureteral 6fr 26cm Pigtl Crv Taper Tip Bldr Mrk - [id number] Implanted:Qty : 1 on 10/15/2023 by Tam Phelps MD at [facility] Stent Right: Ureter [employer] [id number] 05/26/2026 [id number] / / [id number] Explanted Type Area Childcare Aide Device Identifier Shelf Expiration Date Model / Serial / Lot Stent Ureteral 6fr 26cm Pigtl Crv Taper Tip Bldr Mrk - [id number] Implanted:Qty : 1 on 10/01/2023 by Tam Phelps MD at [facility] Explanted:Qty : 1 on 10/15/2023 by Tam Phelps MD at [facility] Stent Right: Ureter [employer] [id number] 04/21/2026 [id number] / / [id number] Insurance [employer] Care Teams Assembler Handbags Relationship Specialty Start Date End Date Chong King MD [address] [facility] [address] [place] [address] PCP - General INTERNAL MEDICINE 09/30/23
[2025-01-24 09:24] LABS: Anion Gap 7 mmol/L (4-12); Blood Urea Nitrogen 18 mg/dL (9-20); Calcium 9.7 mg/dL (8.4-10.2); Carbon Dioxide 30 mmol/L (22-30); Chloride 97 mmol/L (98-107); Estimated Glomerular Filt Rate > 60; Glucose 160 mg/dL (65-110); Sodium 134 mmol/L (137-145)
[2025-01-24 09:32] LABS: Potassium 4.4 mmol/L (3.4-5.0)
== END 2025-01-24 08:20 | disposition home or self-care (01) ==
LOC: ANHSURGERY 08:25
PROVIDERS: Anesthesiology; PCP Emergency Medicine; Visit Provider Urology
DX: Z01.818 Encounter for other preprocedural examination (principal); I10 Essential (primary) hypertension; R94.31 Abnormal electrocardiogram [ECG] [EKG]; Z51.81 Encounter for therapeutic drug level monitoring
CPT/HCPCS: 36415; 80048; 93005

== ENCOUNTER 2025-01-30 00:39 | Day surgery (SDC) | payer MEDICARE, OTHER, SELFPAY ==
[2025-01-22 13:32] VITALS: BMI 33.1
--- NOTE | 2025-01-22 13:48 | PC.NURSE ---
[facility] has started construction of its new state of the art ER which will open Spring 2026. With this, we anticipate parking may be a challenge for some our surgical patients and families. Parking spaces are limited but are available for all Surgical, obstetrics, and ER patients sharing this lot. If you arrive and find you are having a hard time finding a parking space, please note that we understand the challenges, please drive around the hospital and park near Hospital Entrance 1. When you enter this entrance, you can ask a volunteer to direct or take you back to the surgical waiting area to check in. We appreciate everyone?s understanding of these expected challenges while we build for your future. Report to the Outpatient Waiting Room, entrance under the green pavilion located off [address], at time __7:00AM___ on date ___01/30/25__. Planned Procedure Time: ___9:00AM___.? Time changes happen often and if your time is changed the preop area will call you the afternoon before. - You and your visitor will be asked to self-screen and do not enter if you have any COVID symptoms. Please call surgeon if you need to reschedule. - A mask is optional within the hospital at this time. Patients may have clear liquids (water, carbonated beverages, clear teas, apple juice) until 3 hours prior to surgery (6:00AM) with a maximum of 20 ounces. - No food from midnight until time of surgery and no smoking, or chewing tobacco (or any form of nicotine). No chewing gum, candy or mints. Take only the following medications with a SIP of water on the morning of surgery: LORAZEPAM NEEDED DO NOT STOP ANY OF YOUR OTHER PRESCRIPTION MEDICATIONS PRIOR TO SURGERY EXCEPT THE FOLLOWING Hold all vitamins and supplements for 3 days per anesthesiologist. Medications to discontinue per physician ____NONE Date to take last dose Please no make-up, nail croatian, hairspray, perfume, deodorant, or body powder the day of surgery.? No jewelry (including any body piercings) or valuables the day of surgery, leave them at home.? Please take a shower or bath the night before, or the morning of, surgery with an antibacterial soap.? Wear comfortable, loose fitting clothing.? - Jewelry must be removed prior to entering the operating room.? Rings and piercings that are not removed may be cut off. - The hospital will not accept responsibility for valuables.? - Please leave all valuables, including medications, at home the day of surgery. If you are going home after surgery, a licensed driver/sales workers must drive you home.? - NO public transportation without another adult if you receive anesthesia. - We recommend that an adult stay with you for 24 hours following discharge. - We also recommend that you do not drive, make important decision, drink alcoholic beverages, or take any drugs that were not prescribed by your health care provider for at least 24 hours after your discharge time. Follow any additional instructions given to you from your surgeon. Telephone instructions given to ___PATIENT and asked if any additional questions and then verbalized understanding. Patient advised to call surgeon office or pre surgery nurse liaison [phone] if any additional questions.
--- NOTE | ~2025-01-30 | XR_ITS ---
EXAMINATION: XR retrograde pyelo w/stent BI DATE: 01/30/2025 10:19 INDICATION: Bilateral retrograde pyelogram with right internal ureteral stent placement TECHNIQUE: 6 fluoroscopic images of the abdomen and pelvis were obtained during procedure performed by Dr. Phelps. Radiologist was not present for the imaging or procedure. The amount of fluoroscopy time used during this procedure was 0.4 minutes. Total DAP was 0.604 mGym^2. COMPARISON: [facility] dated 01/08/[address] dated 09/29/2023 FINDINGS: Images demonstrate retrograde cannulation of the bilateral ureters with retrograde contrast injection demonstrating a normal left renal collecting system and mildly dilated right renal collecting system. Wires were advanced into the bilateral renal pelvises which is subsequently replaced on the right w ith a right internal ureteral stent with loops formed in the bladder and right renal pelvis. A couple unchanged phlebolith in the pelvis. IMPRESSION: 1. Mild right hydronephrosis with placement of a right internal ureteral stent which is in expected position. Reviewed, dictated and finalized at location A.
--- OUTSIDE RECORDS SUMMARY | 2025-01-30 00:42 | XMS_ITS | Clinical Summary ---
Author Organization [facility] Address [address] [place] [address] Care Team Providers Care Office Assistant Name Role Phone Chong King MD Primary Care Provider + [phone] Allergies No known active allergies Medications lisinopril [...] this topic Medical Devices Implanted Type Area Antenna Rigger Device Identifier Shelf Expiration Date Model / Serial / Lot Stent Ureteral 6fr 26cm Pigtl Crv Taper Tip Bldr Mrk - [id number] Implanted:Qty : 1 on 10/15/2023 by Tam Phelps MD at [facility] Stent Right: Ureter [employer] [id number] 05/26/2026 [id number] / / [id number] Explanted Type Area Antenna Rigger Device Identifier Shelf Expiration Date Model / Serial / Lot Stent Ureteral 6fr 26cm Pigtl Crv Taper Tip Bldr Mrk - [id number] Implanted:Qty : 1 on 10/01/2023 by Tam Phelps MD at [facility] Explanted:Qty : 1 on 10/15/2023 by Tam Phelps MD at [facility] Stent Right: Ureter [employer] [id number] 04/21/2026 [id number] / / [id number] Insurance [employer] Care Teams Office Assistant Relationship Specialty Start Date End Date Chong King MD [address] [facility] [address] [place] [address] PCP - General INTERNAL MEDICINE 09/30/23
--- OUTSIDE RECORDS SUMMARY | 2025-01-30 00:42 | XMS_ITS | Clinical Summary ---
Author Organization [facility] [employer] Address [address] [place] [address] Care Team Providers Care Marketing Automation Manager Name Role Phone Chong King MD Primary Care Provider [phone] Source Comments [facility] [employer]non-owned Affiliates and Associated Physician Practices is amultiple site organization consisting of ambulatory clinics and hospital sitesin [place], [place]. This disclosure is being madepursuant to the Care Everywhere program and may not contain all information available regarding this patient. Last updated 17.[employer] Allergies No known active allergies Medications * [...] topic Insurance [employer] Care Teams Marketing Automation Manager Relationship Specialty Start Date End Date Chong King MD [address] [address] PCP - General Internal Medicine 09/25/23
--- OUTSIDE RECORDS SUMMARY | 2025-01-30 00:42 | XMS_ITS | Clinical Summary ---
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 Gender Identity Not on file Sexual Orientation [...] Completed 09/25/2023 Medical Devices Implanted Type Area Brick Layer Device Identifier Shelf Expiration Date Model / Serial / Lot [employer] Insert Tibial Triathlon 6 H10mm Knee Bearing Condylar Stabilize Sterile 5519-Y-626-E - [id number] Implanted:Qty: 1 on 04/13/2024 at [facility] Right: Knee [employer] 01/01/2029 5531-G-610 -E / / [id number] [employer] Triathlon Cruciate Retain Bead Knee Right 6 Component Femoral Pa 5517-F-602 - [id number] Implanted:Qty: 1 on 04/13/2024 at [facility] Right: Knee [employer] 01/06/2029 5517-F-602 / / [id number] [employer] Triathlon Knee 6 Baseplate Tibial Tritanium 5536-B-600 - [id number] Implanted:Qty: 1 on 04/13/2024 at [facility] Right: Knee [employer] 01/16/2029 5536-B-600 / / [id number] Insurance MEDICARE [facility] [place] MEDICARE PHYSIC[place]ANS [facility] [place] Advance Directives For more information, please contact: [phone] * Full Code (Latest Code Status on File) Date Activated Date Inactivated Comments 04/13/2024 10:47 AM 04/14/2024 3:20 PM Care Teams Pacu Nurse Relationship Specialty Start Date End Date Chong King MD [address] [place] [address] PCP - General Emergency Medicine 03/22/23
--- NOTE | 2025-01-30 07:47 | WPDHPUPDATE1 ---
History and Physical Update Update Date/Time: 01/30/25 07:47 History and Physical has been reviewed, including an updated exam of the patient. There are NO changes in the patient's condition. Risks, benefits, and alternatives have been discussed and questions answered. Patient agrees to proceed with procedure.
--- NOTE | 2025-01-30 07:47 | PM.HPGS ---
History of Present Illness History of Present Illness Consent: Risks, benefits, and alternatives have been discussed and questions answered. Patient agrees to proceed with procedure. Chief complaint: Bilateral Urinary Tract Stones Narrative: Heladio Hung is a 69 year old male with history of urolithiasis who was recently found on CT scan to have small distal ureteral stones as well as large stone burden in the right kidney measuring approximately 3.5 cm in aggregate. Since his CT scan the patient believes he may have passed his ureteral stones although is not sure. He presents today for endoscopic management of his kidney stones. He denies any changes passes baseline today is ready for the procedure. Review of Systems Review of Systems: All systems reviewed & are unremarkable except as noted in HPI and below PMFSH Past Medical History Medical History Vitamin D deficiency Skin lesion of cheek Metabolic syndrome Positive colorectal cancer screening using Cologuard test Hypertension HLD (hyperlipidemia) Surgical History Surgical History History of total knee replacement (TKR) Family History Family History Other Hypertension Social History Social History Smoking status: Never smoker Alcohol intake: current Drinks per week: 5 Alcohol use details: rarely Substance use: never Substance use type: does not use Do You Feel Safe in your Home?: Yes Lack of Transportation: No Lack of Food: Never True Current Housing: I Do Not Have Housing Concerned About Future Housing: No Difficulty Paying Gas/Electric Bills: No Difficulty Paying for Meds: No Currently Unemployed: No Education: High School Diploma/GED Difficulty w/ Childcare or Family Care: No Living arrangements: alone Gender identity (if verbalized by the patient): Male Sexual Orientation (if Verbalized by the Patient): Straight or Heterosexual Spiritual care concerns: No Meds Home Medications and Allergies Home Medications ?Medication ?Instructions ?Recorded ?Confirmed ?Type tamsulosin 0.4 mg capsule (Flomax) 0.4 mg PO HS #10 caps 09/23/23 01/22/25 Rx lisinopril 20 See Rx Instructions .Route 04/15/25 10/13/25 Rx mg-hydrochlorothiazide 25 mg tablet .COMPLEX #90 tabs simvastatin 20 mg tablet See Rx Instructions .Route 11/22/24 01/22/25 Rx .COMPLEX #90 tabs lorazepam 0.5 mg tablet 0.5 mg PO Q8H PRN anxiety 01/22/25 01/22/25 History Allergies Allergy/AdvReac Type Severity Reaction Status Date / Time No Known Allergies Allergy Verified 01/22/25 13:28 Exam Const: General: comfortable and no acute distress HENMT: Head: normal to inspection Eyes: Pupils: Equal, round and reactive pupils present Neck: Neck: normal visual inspection and full ROM Chest: Chest palpation & inspection: normal inspection of the chest Resp: Effort & Inspection: normal respiratory effort Cardio: Rate: regular rate GI: Inspection: normal to inspection and non-distended : General: Yes no CVA tenderness Skin: General skin exam: normal color and no rashes or lesions noted Neuro: General: patient oriented x3 Extrem: General: normal to inspection and full ROM Psych: Appearance: grossly normal and well kempt Assessment and Plan Assessment and plan (1) Kidney stone: Code(s): N20.0 - Calculus of kidney Status: Acute Assessment and Plan: 69-year-old male with right renal stone and bilateral ureteral stone Plan - To OR for cystoscopy, bilateral retrograde pyelograms, bilateral ureteroscopy, laser lithotripsy, stone basket extraction, possible left ureteral stent placement, right ureteral stent placement - Risks, benefits, alternatives reviewed. The patient is amenable to proceed - Anticipate discharge home following his procedure today
--- NOTE | 2025-01-30 07:54 | WPDANESEPPF ---
Anes - Initial Pre Proc Eval Procedure: Operation Date: 01/30/25 09:00 Proposed Procedures p Cystoscopy, Bilateral Ureteroscopy, Bilateral Retrograde Pyelogram, Holmium Laser Lithotripsy, Bilateral Stone Basket Extraction, Right and Possible Left Stent Placement - Tam Phelps MD Date/Time: 01/30/25 07:54 Surgeon: Tam Phelps MD Pre Op Diagnosis: Bilateral Urinary Tract Stones Patient Data Age: 69 Gender: M Height: 1.85 m Weight: 114 kg Allergies Allergy/AdvReac Type Severity Reaction Status Date / Time No Known Allergies Allergy Verified 01/22/25 13:28 Home Medications ?Medication ?Instructions ?Recorded ?Confirmed ?Type tamsulosin 0.4 mg capsule (Flomax) 0.4 mg PO HS #10 caps 09/23/23 01/22/25 Rx lisinopril 20 See Rx Instructions .Route 07/25/24 01/22/25 Rx mg-hydrochlorothiazide 25 mg tablet .COMPLEX #90 tabs simvastatin 20 mg tablet See Rx Instructions .Route 11/22/24 01/22/25 Rx .COMPLEX #90 tabs lorazepam 0.5 mg tablet 0.5 mg PO Q8H PRN anxiety 01/22/25 01/22/25 History Patient hx anesthesia problems: none Family hx anesthesia problems: none Results Review: All pre-operative results and documents have been reviewed as part of the pre-operative evaluation. [facility] Past Medical History Medical History Vitamin D deficiency Skin lesion of cheek Metabolic syndrome Positive colorectal cancer screening using Cologuard test Hypertension HLD (hyperlipidemia) Surgical History Surgical History History of total knee replacement (TKR) Family History Family History Other Hypertension Social History Social History Smoking status: Never smoker Alcohol intake: current Drinks per week: 5 Alcohol use details: rarely Substance use: never Substance use type: does not use Do You Feel Safe in your Home?: Yes Lack of Transportation: No Lack of Food: Never True Current Housing: I Do Not Have Housing Concerned About Future Housing: No Difficulty Paying Gas/Electric Bills: No Difficulty Paying for Meds: No Currently Unemployed: No Education: High School Diploma/GED Difficulty w/ Childcare or Family Care: No Living arrangements: alone Gender identity (if verbalized by the patient): Male Sexual Orientation (if Verbalized by the Patient): Straight or Heterosexual Spiritual care concerns: No Anes - Eval Final PreProcedure Day of Procedure 01/30/25 07:54 Patient weight: obese Heart: regular rate and rhythm Lungs: clear to auscultation Airway: Mallampati scale class II Neurological: alert and oriented Last oral intake: >/= 8 hours ASA classification: III Emergent: no Anesthetic plan: proceed Anesthesia type and monitoring: general LMA and standard monitoring Results Review: All pre-operative results and documents have been reviewed as part of the pre-operative evaluation. Informed Consent: The patient's anesthetic plan and its attendant risks and benefits were discussed with the patient/family/POA. Questions were solicited and answers provided to the satisfaction of the patient/family/POA.
[2025-01-30 08:03] VITALS: BP 136/64; PULSE 69; TEMP 36.4; O2SAT 99; BMI 34.8
[2025-01-30] MEDS: LACTATED RINGERS 1,000 ML 30 ML IV CONT ×2 (08:06→10:22)
[2025-01-30] MEDS: ceFAZolin 2 GM in SODIUM CHLORIDE 0.9% IV 50 ML 100 ML IVPB (08:59)
--- NOTE | 2025-01-30 10:09 | S_PTH ---
PATIENT: Heladio Hung LOC: [facility] U#:[id number] AGE/SX: 69/M ROOM: RE01/30/[address]: Tam Phelps MD : [id number] BED: DIS: 01/30/2025 SPEC #: [id number] RECD: 01/30/25 10:32 STATUS: ONEL REQ #: [id number] ZAYRA: 01/30/25 10:[address]: Tam Phelps DEPT: [facility] Surgical RECD BY: Fritz Reddy ENTERED: 01/30/25 10:32 SP TYPE: Surgical OTHR DR: Chong King MD Tissues: A - Stone Procedures: Gross Exam Level 1 Crystalline Analysis
[2025-01-30] MEDS: KETOROLAC 15 MG/ML VIAL (*BKC) IV PUSH (10:14)
[2025-01-30 10:22] VITALS: BP 141/70; PULSE 66; RESP 17; TEMP 36.3; O2SAT 100
--- NOTE | 2025-01-30 10:33 | W.PM.PROC2 ---
Procedure Note - Detailed Date of Procedure 01/30/25 Pre-op Diagnosis Bilateral Urinary Tract Stones Post-op Diagnosis Other (Right nephrolithiasis, bladder stone, spontaneously passed bilateral ureteral stones) Procedure Performed 1. Cystoscopy 2. Bladder stone extraction (simple) 3. Bilateral retrograde pyelograms with intraoperative interpretation 4. Left diagnostic ureteroscopy 5. Right ureteroscopy and renal endoscopy 6. Laser lithotripsy 7. Stone basket extraction 8. Right ureteral stent placement Surgeon Tam Phelps MD Anesthesia General Findings 1. Modifier 22 --please note that this surgery required substantially more work, physical and mental effort, and technical difficulty than typically required due to the significant and large stone burden in the right kidney measuring at least 3 cm in total 2. Cystourethroscopy revealed jrrv-tz-[id number] lateral lobe hyperplasia with an elevated bladder neck. There is a small approximately 3 mm stone at the dependent portion of the bladder consistent with spontaneous ureteral stone passage. Orthotopic ureteral orifices bilaterally with no suspicious lesions, tumors, active bleeding in the lower urinary tract. 3. Left retrograde pyelogram using a 50 50 mixture of contrast and saline showed no hydroureteronephrosis, filling defects, or contrast extravasation. On delayed films there was prompt drainage of contrast from the left collecting system. 4. Right retrograde pyelogram using 50 50 mixture of contrast and saline showed no hydroureteronephrosis or contrast extravasation; there were filling defects in the right renal pelvis and right upper pole 5. Left diagnostic ureteroscopy revealed no left ureteral stones nor lesions; there was no notable swelling or trauma to the left ureter and for this reason, in addition to the prompt drainage of contrast from the left collecting system noted on delayed films, I elected not to place a ureteral stent on the left-hand side 6. Right ureteroscopy and the renal endoscopy revealed a large stone in the right renal pelvis measuring approximately 2 cm; additionally, in the right upper pole there were several sqqqho-sq-kwzkc stones measuring at least 1-1.5 cm in total aggregate 7. Successful laser lithotripsy of the aforementioned stones with all stone fragments sub 1 mm and no sizable stone fragments appreciated at the conclusion of the case 8. Successful right ureteral stent placement without strings attached Description of Procedure After informed consent had been obtained, the patient was brought back to the operative theater and placed in supine position on the operating table where upon general anesthesia was induced. The patient was placed in a dorsal lithotomy position and all pressure points were padded. Sequential compression devices were on and noted be functioning. The patient was prepped and draped in sterile fashion for an endoscopic case. Preoperative antibiotics were confirmed to have been administered. A formal time-out was performed to confirm the correct patient, site, and procedure and all were in agreement to proceed. To begin with I atraumatically advanced a lubricated 22 [place] rigid cystoscope transurethrally into the patient's bladder with findings as noted above. Notably, there was a small approximately 3 mm bladder stone at the dependent portion of the bladder which was flushed out through the cystoscope and collected as a specimen to be sent for stone analysis. This stone was suspected to be represent 1 of his ureteral stones which has spontaneously passed. Next, I turned my attention to the left ureteral orifice which was cannulated with a Sensor wire. Over top of the Sensor wire passed the open-ended catheters level of the left distal ureter and the Sensor wire was removed. I then performed a left-sided retrograde pyelogram through the open-ended catheter with findings noted above. I then replaced a Sensor wire through the opening catheter up the level left kidney under fluoroscopy. The cystoscope was removed and I advanced the semi rigid ureteroscope transurethrally patient's bladder with attention drawn to the left ureteral orifice which was cannulated with a 2nd, safety Glidewire also advanced to the level of the left kidney under fluoroscopy. I then advanced the ureteral scope into the left ureter and performed left diagnostic ureteroscopy. There were no ureteral stones or lesions appreciated, confirming spontaneous passage of patient's previous left distal ureteral stone. Through the ureteral scope and then performed another left-sided retrograde pyelogram in order to assess for drainage. On delayed films, there was prompt drainage noted from the left collecting system and I elected not to place a left ureteral stent. I then removed the ureteral scope as well as the Sensor and Glidewire. I then readvanced the cystoscope into the bladder and cannulated the right ureteral orifice with a Sensor wire. Over top of the Sensor wire we passed the open-ended catheter to the level of the right distal ureter. The Sensor wire was removed and a prior right-sided retrograde pyelogram using 50 50 mixture of contrast and saline findings noted above. I then replaced a Sensor wire up to level the right kidney under fluoroscopy. The cystoscope was removed and I advanced a semi rigid ureteroscope transurethrally in the patient's bladder and cannulated the right ear over the 2nd, safety Glidewire was also advanced to level the right kidney under fluoroscopy. I then guided the ureteroscope between the 2 wires and performed right ureteroscopy; no stones nor lesions were appreciated in the right ureter confirming spontaneous patches of patient's previous right distal ureteral stone. I then removed the semirigid ureteral scope and then advanced a 11/13 [place] Irish 36 cm ureteral access sheath over top of the Glidewire and under direct fluoroscopic guidance I advanced this to the level of the right proximal ureter. The inner sheath was removed and I advanced a flexible digital ureteroscope through the outer sheath to perform right renal endoscopy. There was a large approximately 2 cm stone in the renal pelvis as well as several medium to large stones in the upper pole measuring at least 1-1.5 cm, making total stone burden in the right kidney at least 3 cm. I used a 200 micron laser fiber to dust the stones into sub 1 mm fragments. Any larger fragments were retrieved with a ZeroTip Nitinol basket and collected in the same specimen cup to be sent for kidney stone analysis. Please note that this process took significant amount of time; see modifier 22 above in findings for further details. Afterwards I re-explored the upper, mid, and lower poles of the kidney as well as the renal pelvis and did not appreciate any sizable stone fragments remaining. Through the ureteral scope I then performed another right-sided retrograde pyelogram in order to delineate the right collecting system in anticipation of stent placement. I then performed pullback ureteroscopy while simultaneously removing the access sheath and noted no sizable stone fragments nor ureteral injury. Next, I backloaded the cystoscope onto the Sensor wire which was advanced transurethrally his bladder with attachment of the right year orifice. Over top the wire I passed a 6 [place] variable length catheter without strings attached and used the pusher to deploy the stent in place, confirming a good proximal curl in the right kidney under fluoroscopy and a good distal curl in the bladder under both direct cystoscopic and fluoroscopic vision. Lastly, I drained the patient's bladder and removed the cystoscope, essentially concluded the case. The patient tolerated the procedure well and there were no immediate complications noted. He was woken from anesthesia and taken to recovery in stable condition. At the conclusion of the case all sponge, instrument, sharp counts were correct x2. Disposition: Patient will be monitored in the PACU be discharged home once clearing PACU protocol. Patient's sisiter was provided with an update following the procedure and all questions were answered to her satisfaction at the conclusion of our discussion. The patient will follow-up in the urology clinic about 1-2 weeks for office cystoscopy and right ureteral stent removal
[2025-01-30 10:37] VITALS: BP 137/63; PULSE 93; RESP 17; O2SAT 100
[2025-01-30 10:45] VITALS: BP 139/66; PULSE 61; RESP 17; O2SAT 100
[2025-01-30 11:00] VITALS: BP 165/70; PULSE 60; RESP 16
[2025-01-30] MEDS: oxyCODONE HCL (*CRX) 5 MG TAB IR PO (11:24)
[2025-01-30 11:30] VITALS: BP 158/61; PULSE 58; RESP 16
== END 2025-01-30 11:37 | disposition home or self-care (01) ==
PROVIDERS: PCP Emergency Medicine; Visit Provider Urology
PROC: (CPT 52352; principal; 2025-01-30 09:00)
DX: N20.0 Calculus of kidney (principal); N21.0 Calculus in bladder; E66.9 Obesity, unspecified; Z68.34 Body mass index [BMI] 34.0-34.9, adult
CPT/HCPCS: 52356; 74420; 82365; 88300; J0690; A9270; C1758; C1769; C1894; C2617; J1885; J2003; J2250; J2405; J2704; J3010; J7120; Q9966